=== PATIENT | female | born 1960 | race Caucasian/White ===

== ENCOUNTER 2019-08-15 14:52 | Emergency (ER) | payer MEDICAID, OTHER ==
--- NOTE | 2019-08-15 16:24 | ED ---
Back Pain - HPI Summary HPI Summary: Pt. is a 60 y.o female who presents to the ER for worsening right low back pain and right shoulder pain x several days. Pt. denies any recent falls or injuries. Pt. notes she recently moved to the area and does not have a PCP. She has been taking 400mg of motrin with some relieve of pain until last night. Pt. notes difficulty sleeping secondary to pain. Denies fever, cough, cp, sob, abd. pain, urinary sxs. Sxs are mild in severity. Movement makes sxs worse. Nothing improves pain. Pain radiates into right leg. Denies numbness, tingling, or weakness. - History of Current Complaint Chief Complaint: EDExtremityUpper Stated Complaint: RT SHOULDER/BACK PAIN PER PT Time Seen by Provider: 08/15/19 15:26 Hx Obtained From: Patient Pain Intensity: 10 - Allergies/Home Medications Allergies/Adverse Reactions: Allergies Allergy/AdvReac Type Severity Reaction Status Date / Time No Known Allergies Allergy Verified 04/06/17 12:57 PMH/Surg Hx/FS Hx/Imm Hx Previously Healthy: Yes Endocrine/Hematology History: Denies: Hx Diabetes Cardiovascular History: Denies: Hx Hypertension, Hx Pacemaker/ICD Sensory History: Denies: Hx Hearing Aid Psychiatric History: Denies: Hx Panic Disorder - Surgical History Surgery Procedure, Year, and Place: 15 YRS REMOVAL BENIGN CYST- UTERUS Infectious Disease History: No Infectious Disease History: Denies: Traveled Outside the [place] in Last 30 Days - Family History Known Family History: Positive: Non-Contributory - Social History Occupation: Unemployed Lives: With Family Alcohol Use: Rare Substance Use Type: Reports: None Smoking Status (MU): Never Smoked Tobacco Review of Systems - ROS Summary Review of Systems Summary: Cyclobenzaprine TAB* [Flexeril 10 MG TAB*] 5 mg PO BID PRN #12 tab 08/15/19 [Rx] Naproxen [Naproxen 500 mg tab] 500 mg PO BID #20 tablet 08/15/19 [Rx] Constitutional: Negative Negative: Fever Cardiovascular: Negative Negative: Chest Pain Respiratory: Negative Negative: Shortness Of Breath Gastrointestinal: Negative Negative: Abdominal Pain Genitourinary: Negative Negative: dysuria, discharge Positive: Other - Right low back pain that radiates to leg. Right shoulder pain. Neurological/Mental Status: Negative Negative: Weakness, Paresthesia, Numbness All Other Systems Reviewed And Are Negative: Yes Physical Exam Triage Information Reviewed: Yes Vital Signs On Initial Exam: Initial Vitals Temp Pulse Resp BP Pulse Ox 97.8 F 78 18 128/79 98 08/15/19 15:03 08/15/19 15:03 08/15/19 15:03 08/15/19 15:03 08/15/19 15:03 Vital Signs Reviewed: Yes Appearance: Positive: Well-Appearing - Pt. standing in room in NAD. Skin: Positive: Warm, Dry Head/Face: Positive: Normal Head/Face Inspection Eyes: Positive: Normal, EOMI Neck: Positive: Supple Respiratory/Lung Sounds: Positive: Clear to Auscultation, Breath Sounds Present Cardiovascular: Positive: Normal, RRR Musculoskeletal: Positive: Other - 5/5 strength in bilateral UEs and LEs. Midline low lumbar tenderness and pain over right SI joint. Diffuse right shoulder and lateral neck pain with full ROM with pain. Neurological: Positive: Normal, CN Intact II-III Psychiatric: Positive: Affect/Mood Appropriate Procedures - Sedation Patient Received Moderate/Deep Sedation with Procedure: No Diagnostics - Vital Signs Vital Signs Temp Pulse Resp BP Pulse Ox 08/15/19 15:03 97.8 F 78 18 128/79 98 - Laboratory Lab Statement: Any lab studies that have been ordered have been reviewed, and results considered in the medical decision making process. Back Pain Course/Dx - Course Course Of Treatment: Pt. with worsening low back pain and right shoulder pain. No neuro deficts. Xrays show degenerative changes without acute findings per radiology. Flexeril and naproxen rx. Will have pt. fu with the [facility]. To return to er if sxs change or worsen. - Diagnoses Differential Diagnosis/HQI/PQRI: Positive: Fracture, Herniated Disc, Strain, Sprain Provider Diagnoses: Low back pain, Shoulder pain Discharge ED - Sign-Out/Discharge Documenting (check all that apply): Patient Departure - Discharge Plan Condition: Good Disposition: HOME Prescriptions: Cyclobenzaprine TAB* [Flexeril 10 MG TAB*] 5 mg PO BID PRN #12 tab PRN Reason: Pain - Moderate Naproxen [Naproxen 500 mg tab] 500 mg PO BID #20 tablet Patient Education Materials: Osteoarthritis (ED), Shoulder Sprain (ED), Lumbar Radiculopathy (ED) Referrals: [facility] [Outside] [facility] [Outside] Additional Instructions: Schedule a follow up appointment with the [facility] Medication as directed Apply warm compresses to back Gentle stretching and massage Return to ER is symptoms change or worsen - Billing Disposition and Condition Condition: GOOD Disposition: Home - Attestation Statements Provider Attestation: I was available for consult. This patient was seen by the [facility]. The patient was not presented to, seen by, or examined by me. -Parag
[2019-08-15 17:47] VITALS: BP 145/88
== END 2019-08-15 17:44 | disposition home or self-care (01) ==
LOC: ED 14:52
DX: M54.5 Low back pain (principal); M25.511 Pain in right shoulder
CPT/HCPCS: 72110; 99282